=== PATIENT | male | born 1980 | race African-American/Black ===

== ENCOUNTER 2018-11-22 18:45 | Emergency (ER) | payer MEDICAID, SELFPAY ==
[2018-11-22 18:49] VITALS: BP 147/90; PULSE 68; RESP 13; TEMP 36.4; O2SAT 98; BMI 38.4
== END 2018-11-22 19:25 | disposition left against medical advice (07) ==
DX: R73.9 Hyperglycemia, unspecified (principal)
CPT/HCPCS: 99281; 99282

== ENCOUNTER 2022-05-27 15:54 | Emergency (ER) | payer MEDICAID, SELFPAY ==
[2022-05-27] VITALS (8 sets, daily range): BP systolic 129–175; BP diastolic 68–90; PULSE 66–77; RESP 15–24; TEMP 36.4; O2SAT 95–98
--- NOTE | 2022-05-27 16:19 | PC.NURSE ---
PIV unsuccessful x2
--- NOTE | 2022-05-27 16:28 | ED.ARRPALP ---
HPI - Arrhythmia/Palpitations General Chief Complaint: Arrhythmia/Palpitations Stated Complaint: Heart Irregular, general weakness Time Seen by Provider: 05/27/22 15:59 Source: patient Mode of arrival: Ambulatory History of Present Illness HPI narrative: This 41-year-old man comes to the ED with chest symptoms today. He has type 2 diabetes and hypertension. He does not smoke cigarettes. Family history of coronary disease. He was feeling reasonably well and normal this morning but then early this afternoon when he was playing video games online he noticed he started feel fluttering sensation in his chest a little vague pressure and some shortness of breath. His smart watch told him that he was in atrial fibrillation. At the time he arrives here he is feeling somewhat better. He was sick with infections some weeks ago but that is mostly resolved. He has not had recent fever, cough, congestion, nausea, vomiting, diarrhea, sweats, other signs of illness. He has not had this happen before other than when he had a panic attack when he was in high school. He says this feels a bit different than that episode however. Related Data Previous Rx's Medication Instructions Recorded metoprolol succinate 25 mg capsule 25 mg PO DAILY #14 ea 05/27/22 sprinkle, ext. release 24 hr Allergies Allergy/AdvReac Type Severity Reaction Status Date / Time No Known Drug Allergies Allergy Verified 05/27/22 16:04 Review of Systems Review of Systems Narrative: Complete review of systems is negative other than as noted. Patient History Social History Smoking Status: Smoker, status unknown Smoking Status: Smoker, status unknown alcohol intake frequency: holidays/special occasions only Substance Use Type: marijuana Exam Narrative Exam Narrative: GENERAL: Alert, cooperative and in no distress. HEAD: Atraumatic. Normocephalic. EYES: Sclera are clear without icterus. Extraocular movements are full. ENT: No rhinorrhea. NECK: Supple. Full range of motion. CARDIOVASCULAR: Normal rate and rhythm without murmur gallop or rub. RESPIRATORY: Clear to auscultation. Breath sounds equal bilaterally. No wheezes, rales, or rhonchi. GASTROINTESTINAL: Abdomen soft, non-tender, nondistended. EXTREMITIES: No edema, full range of motion. No obvious trauma. BACK: Normal inspection, no CVA tenderness. NEURO: Nonfocal examination, normal speech, normal gait. SKIN: No rash or erythema of visible areas PSYCH: Normally oriented. Normal range of affect. Appropriate behavior Initial Vital Signs Initial Vital Signs: Vital Signs Temperature 97.6 F 05/27/22 15:54 Scores PERC Score Age greater than or equal to 50 years: No Heart rate greater than or equal to 100 bpm: No Room Air O2 Sat less than 95%: No Unilateral leg swelling: No Recent trauma or surgery: No Hemoptysis: No Prior PE or DVT: No Hormone Use: No Total PERC Score: 0 Course Orders Ordered: ED Orders 05/27/22 15:59 EKG-12 Lead Stat 05/27/22 16:31 XR chest 1V Stat 05/27/22 16:36 Complete Blood Count AUTO DIFF Stat Comprehensive Metabolic Panel Stat TSH [Thyroid Stimulating Hormone] Stat Troponin & CK Cardiac Panel Stat Discontinued Medications Metoprolol Succinate (Metoprolol Er 25 Mg Tablet) 25 mg PO NOW ONE Stop: 05/27/22 17:47 Vital Signs Vital signs: Vital Signs - 8 hr 05/27/22 15:54 05/27/22 16:00 05/27/22 16:01 Temperature 97.6 F Pulse Rate 77 Respiratory Rate 24 Blood Pressure 175/90 H Pulse Oximetry 96 Oxygen Delivery Method 05/27/22 16:01 05/27/22 16:30 05/27/22 16:31 Temperature Pulse Rate 77 66 69 Respiratory Rate 15 23 17 Blood Pressure Pulse Oximetry 97 96 97 Oxygen Delivery Method 05/27/22 16:31 05/27/22 17:00 05/27/22 17:00 Temperature Pulse Rate 70 Respiratory Rate 15 Blood Pressure 147/69 H 129/68 Pulse Oximetry 95 Oxygen Delivery Method Room Air MDM - Arrhythmia/Palpitations Lab Data Result diagrams: 05/27/22 16:36 05/27/22 16:36 Labs: Lab Results 05/27/22 05/27/22 Range/Units 16:36 16:36 WBC 7.2 (4.5-11.0) X10^3/uL RBC 5.30 (4.5-5.9) X10^6/uL Hgb 14.2 (13.5-17.5) g/dL Hct 42.4 (41-53) % MCV 80.1 (80-100) fL MCH 26.8 (26-34) PG MCHC 33.5 (30-36) % RDW 14.7 (11.6-14.8) % Plt Count 239 (150-400) X10^3/uL Neut % (Auto) 66.0 (50-75) % Lymph % (Auto) 25.4 (25-40) % [place] % (Auto) 5.8 (3-14) % Eos % (Auto) 1.8 L (2-4) % Baso % (Auto) 1.0 (0-2) % Neut # (Auto) 4800 (8155-3442) /uL Lymph # (Auto) 1800 (2614-5003) /uL [place] # (Auto) 400 (0-900) /uL Eos # (Auto) 100 (0-450) /uL Baso # (Auto) 100 (0-100) /uL Sodium 137 (137-145) mmol/L Potassium 3.9 (3.4-5.1) mmol/L Chloride 103 (98-107) mmol/L Carbon Dioxide 26 (22-32) mmol/L BUN 18 (9-20) mg/dL Creatinine 1.00 (0.66-1.25) mg/dL Estimated GFR > 60 (>60) mL/min BUN/Creatinine Ratio 18.0 (6-22) Glucose 184 H (70-100) mg/dL Calcium 8.8 (8.4-10.2) mg/dL Total Bilirubin 0.3 (0.2-1.3) mg/dL AST 38 (17-59) IU/L ALT 40 (<50) IU/L Alkaline Phosphatase 91 (38-126) U/L Total Creatine Kinase 535 H (55-170) U/L CK-MB (CK-2) 1.46 (<2.37) ng/mL CK-MB (CK-2) Rel Index 0.3 L (1.5-5.0) % Troponin I < 0.012 (0.01-0.034) ng/mL Total Protein 7.4 (6.3-8.2) g/dL Albumin 4.3 (3.5-5.0) g/dL Globulin 3.1 (1.7-4.1) g/dL Albumin/Globulin Ratio 1.4 (1.0-2.8) Imaging Data Chest x-ray: Radiologist's Impresson: IMPRESSION:? No acute cardiopulmonary pathology. ? ? Dictated by: Abhinav Alexis M.D. on 05/27/2022 at 16:43 ? ? Approved by: Abhinav Alexis M.D. on 05/27/2022 at 16:43 ? MDM Narrative Medical decision making narrative: Workup is reassuring without clear evidence of ischemia or atrial fibrillation. He does have multiple premature complexes and PACs. I recommend adding a beta-khloe at a very low dose with instructions to hold if his pulse rate is under 60. He seems to have a sinus arrhythmia only. Discharge Plan Departure Patient Disposition: Home Clinical Impression: Palpitations Instructions: Arrhythmias Activity Restrictions/Additional Instructions: It is not clear what rhythm problem you had or have. You do not have atrial fibrillation currently. You do have a lot of premature beats that may require further evaluation. This is not immediately dangers to you. You should seek immediate follow-up however if you develop fainting, severe chest pain or breathlessness at rest where you can speak properly. For now recommend a mild dose of metoprolol. This drug does have a tendency to slow her heart rate down a little bit and you tell me that your heart rate commonly is in the 50s. Be sensitive to this and with holding the metoprolol if your heart rate is less than 60. Plan on seeing your provider next week for further evaluation as indicated. Prescriptions: New metoprolol succinate 25 mg capsule,leatha,ER 24hr 25 mg PO DAILY Qty: 14 0RF
--- NOTE | 2022-05-27 16:31 | DI.RAD.S_ITS ---
PROCEDURE: XR CHEST 1V INDICATIONS: chest pain TECHNIQUE: One view of the chest was acquired. COMPARISON: None. FINDINGS: Surgical changes and devices: None. Lungs and pleura: Lungs are clear. No pleural effusions or pneumothorax. Mediastinum: Mediastinal contours appear normal. Heart size is normal. Bones and chest wall: No suspicious bony lesions. Overlying soft tissues appear unremarkable. IMPRESSION: No acute cardiopulmonary pathology. Dictated by: Abhinav Alexis M.D. on 05/27/2022 at 16:43 Approved by: Abhinav Alexis M.D. on 05/27/2022 at 16:43
[2022-05-27 16:51] LABS: Add Manual Diff / Slide Review NO; Basophils Absolute Auto 100 /uL (0-100); Eosinophils Absolute Auto 100 /uL (0-450); Eosinophils Percent Auto 1.8 % (2-4); Hematocrit 42.4 % (41-53); Hemoglobin 14.2 g/dL (13.5-17.5); Lymphocytes Absolute Auto 1800 /uL (1100-4500); Lymphocytes Percent Auto 25.4 % (25-40); Mean Corpuscular HGB Conc 33.5 % (30-36); Mean Corpuscular Hemoglobin 26.8 PG (26-34); Mean Corpuscular Volume 80.1 fL (80-100); Monocytes Absolute Auto 400 /uL (0-900); Monocytes Percent Auto 5.8 % (3-14); Neutrophils Absolute Auto 4800 /uL (1500-7000); Platelet Count 239 X10^3/uL (150-400); Red Cell Distribution Width 14.7 % (11.6-14.8); White Blood Cell Count 7.2 X10^3/uL (4.5-11.0)
[2022-05-27 17:20] LABS: Alanine Aminotransferase 40 IU/L (<50); Albumin 4.3 g/dL (3.5-5.0); Albumin Globulin Ratio 1.4 (1.0-2.8); Alkaline Phosphatase 91 U/L (38-126); Aspartate Aminotransferase 38 IU/L (17-59); Bilirubin Total 0.3 mg/dL (0.2-1.3); Blood Urea Nitrogen 18 mg/dL (9-20); Calcium 8.8 mg/dL (8.4-10.2); Carbon Dioxide 26 mmol/L (22-32); Chloride 103 mmol/L (98-107); Creatine Kinase 535 U/L (55-170); Estimated Glomerular Filt Rate > 60 mL/min (>60); Globulin 3.1 g/dL (1.7-4.1); Glucose 184 mg/dL (70-100); HEMOLYSIS 22 (0-50); Potassium 3.9 mmol/L (3.4-5.1); Sodium 137 mmol/L (137-145); Total Protein 7.4 g/dL (6.3-8.2)
[2022-05-27 17:31] LABS: Troponin I < 0.012 ng/mL (0.01-0.034)
[2022-05-27 17:36] LABS: CKMB % Relative Index 0.3 % (1.5-5.0); Creatine Kinase MB 1.46 ng/mL (<2.37)
[2022-05-27] MEDS: METOPROLOL ER 25 MG TABLET PO (17:56)
[2022-05-27 18:22] LABS: Thyroid Stimulating Hormone 1.73 uIU/mL (0.47-4.68)
== END 2022-05-27 18:02 | disposition home or self-care (01) ==
PROVIDERS: Emergency Provider Family Medicine Addiction Medicine
DX: R00.2 Palpitations (principal)
CPT/HCPCS: 71045; 80053; 82550; 82553; 84443; 84484; 85025; 93005; 93010; 99283; 99284